=== PATIENT | female | born 1960 | race Caucasian/White ===

== ENCOUNTER 2024-11-03 04:14 | Day surgery (SDC) | payer BC ==
[2024-11-01 12:38] VITALS: BMI 34.3
[2024-11-03] MEDS ORDERED: METOCLOPRAMIDE HCL INJECTION 10 MG/2 ML VIAL ONE (08:10)
[2024-11-03] MEDS ORDERED: PHENYLEPHRINE HCL 10 MG/1 ML SINGLE DOSE VIAL ONE (08:10)
[2024-11-03] MEDS ORDERED: DEXAMETHASONE SOD PHOSPHATE 4 MG/1 ML VIAL ONE (08:10)
[2024-11-03] MEDS ORDERED: LIDOCAINE HCL/PF 2% SDV 5ML VIAL ONE (08:10)
[2024-11-03] MEDS ORDERED: ONDANSETRON 4 MG/2 ML VIAL ONE (08:10)
[2024-11-03] MEDS ORDERED: KETOROLAC TROMETHAMINE 30 MG/1 ML VIAL ONE (08:10)
[2024-11-03] MEDS ORDERED: ACETAMINOPHEN 325 MG TABLET (FP) PO PRN (09:10)
[2024-11-03] MEDS ORDERED: oxyCODONE HCL 5 MG TABLET PO PRN (09:10)
[2024-11-03] MEDS ORDERED: IBUPROFEN 400 MG TABLET (FP) PO PRN (09:10)
[2024-11-03] MEDS ORDERED: MIDAZOLAM HCL 2 MG/2 ML SINGLE DOSE VIAL ONE (09:12)
[2024-11-03] MEDS ORDERED: ACETAMINOPHEN INJECTION 100 ML ONE (09:29)
[2024-11-03] MEDS ORDERED: PROMETHAZINE HCL 25 MG/1 ML VIAL IVPB PRN (09:32)
[2024-11-03] MEDS ORDERED: PROPOFOL 20 ML ONE (09:43)
[2024-11-03] MEDS: LACTATED RINGERS SOLUTION 1,000 ML IV SCH (10:45)
[2024-11-03 11:46] VITALS: RESP 20
[2024-11-03 13:06] VITALS: BP 124/70; PULSE 64; TEMP 97.4
== END 2024-11-03 13:11 | disposition home or self-care (01) ==
LOC: JASU-SURG 04:14
PROVIDERS: ATTEND Obstetrics & Gynecology
PROC: 0UB98ZZ Excision of Uterus, Via Natural or Artificial Opening Endoscopic (ICD-10-PCS; principal; 2024-11-03 09:00)
DX: N95.0 Postmenopausal bleeding (principal); N84.0 Polyp of corpus uteri
CPT/HCPCS: 88305-TC; 88341-TC; 88342-TC; 94760; J0131

== ENCOUNTER 2024-11-30 06:58 | Day surgery (SDC) | payer BC ==
[2024-11-25 08:53] VITALS: BMI 35.9
[2024-11-30 08:38] VITALS: TEMP 97.9
[2024-11-30 08:45] VITALS: RESP 18
[2024-11-30 09:05] VITALS: BP 132/71; PULSE 72
== END 2024-11-30 09:05 | disposition home or self-care (01) ==
LOC: JASU-ENDO 06:58
PROVIDERS: ATTEND Internal Medicine Gastroenterology
PROC: 0DBN8ZX Excision of Sigmoid Colon, Via Natural or Artificial Opening Endoscopic, Diagnostic (ICD-10-PCS; 2024-11-30)
PROC: 0DBP8ZX Excision of Rectum, Via Natural or Artificial Opening Endoscopic, Diagnostic (ICD-10-PCS; principal; 2024-11-30 08:00)
DX: Z12.11 Encounter for screening for malignant neoplasm of colon (principal); D12.8 Benign neoplasm of rectum; K63.5 Polyp of colon; K64.8 Other hemorrhoids; Z86.0100 Personal history of colon polyps, unspecified; Z83.719 Family history of colon polyps, unspecified
CPT/HCPCS: 88305-TC